=== PATIENT | male | born 1990 | race Caucasian/White ===

== ENCOUNTER 2024-06-07 07:47 | Emergency (ER) | payer SELFPAY ==
[~2024-06-07] VITALS: Ht 165.1 cm; Wt 68.0 kg
[2024-06-07 07:49] VITALS: BP 129/84; PULSE 62; RESP 18; TEMP 37; O2SAT 98
[2024-06-07] MEDS ORDERED: P20 MT (08:08)
[2024-06-07] MEDS ORDERED: VALA10002 MT (08:08)
== END 2024-06-07 09:03 | disposition home or self-care (01) ==
LOC: ER 07:47
DX: G51.0 Bell's palsy (principal); Z79.624 Long term (current) use of inhibitors of nucleotide synthesis; Z88.0 Allergy status to penicillin
CPT/HCPCS: 99283